=== PATIENT | female | born 1945 | race Caucasian/White ===

== ENCOUNTER 2021-10-27 12:31 | Outpatient (CLI) | payer MEDICARE, OTHER | END 2021-10-27 12:32 | disposition critical access hospital (66) | LOC: EMS 12:31 | DX: R11.2 Nausea with vomiting, unspecified (principal); R55 Syncope and collapse; R53.81 Other malaise | CPT/HCPCS: A0425; A0427 ==

== ENCOUNTER 2021-10-27 12:42 | Emergency (ER) | payer MEDICARE, OTHER ==
[2021-10-27 12:55] VITALS: BP 163/88
--- NOTE | 2021-10-27 12:58 | ED Physician Documentation ---
History of Present Illness - Stated complaint Stated Complaint: NAUSEA - Chief complaint Chief Complaint: General - Additonal information Additional information: 76-year-old female who has a history of hypertension presents the emergency depa rtment for evaluation of generalized diaphoresis and feeling like she was overheated while driving. She was in her vehicle and driving from [place] to [place]. She had been in her vehicle for about 1 hour with the air conditioning on when she began to feel suddenly overheating and began to sweat. She pushed through and [place]. Because she thought she may have been overheated she drank about 1.5-2 L of crystalloid prior to coming into the ER. She reports the duration of her symptoms lasted for about 45 minutes to 1 hour. [place] For EMS she had a nonischemic EKG. She was given some Zofran which improved the nausea. She denies that she was ever having any chest pain but did think she might have been somewhat short of breath. No history of myocardial infarction. No unilateral leg swelling. Non-smoker. No history of alcohol use. Review of Systems Constitutional: reports: Other (Diaphoresis). denies: Fever, Chills Eyes: reports: Reviewed and negative Nose: reports: Reviewed and negative Throat: reports: Reviewed and negative Cardiac: denies: Chest pain / pressure, Palpitations, Pedal edema, Calf pain Respiratory: denies: Dyspnea, Cough, Hemoptysis, Wheezing GI: reports: Nausea : reports: Reviewed and negative Skin: reports: Reviewed and negative Musculoskeletal: reports: Reviewed and negative PD PAST MEDICAL HISTORY - Allergies Allergies/Adverse Reactions: Allergies Allergy/AdvReac Type Severity Reaction Status Date / Time losartan Allergy Edema Verified 10/27/21 12:49 meperidine [From Demerol] Allergy Emesis Verified 10/27/21 12:49 PD ED PE NORMAL - General General: Alert and oriented X 3, No acute distress, Well developed/nourished - HEENT HEENT: Atraumatic, Moist mucous membranes, Pharynx benign - Neck Neck: Supple, no meningeal sign, No adenopathy - Cardiac Cardiac: RRR, No murmur - Respiratory Respiratory: No respiratory distress - Abdomen Abdomen: Normal bowel sounds, Soft, Non tender - Back Back: No CVA TTP, No spinal TTP - Derm Derm: Normal color, Warm and dry, No rash - Extremities Extremities: No deformity - Neuro Neuro: Alert and oriented X 3, 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 Eye Opening: Spontaneous Motor: Obeys Commands Verbal: Oriented GCS Score: 15 - Psych Psych: Normal mood Results - Vitals Vitals: Vital Signs - 24 hr 10/27/21 10/27/21 12:49 12:55 Temperature 36.5 C 36.5 C Heart Rate 66 66 Respiratory 16 16 Rate Blood Pressure 163/88 H 163/88 H O2 Saturation 99 99 Oxygen O2 Source Room air - EKG (time done) 1250 Rate: Rate (enter#) (70) Rhythm: NSR, Other (multiple PVC's) [place]: Normal Intervals: Normal [place] QRS: Normal Ischemia: Non specific changes (t wave flattening inferior leads) Compare to prior EKG: Old EKG unavailable Computer interpretation: Agree with computer - Labs Labs: Laboratory Tests 10/27/21 10/27/21 10/27/21 13:05 13:05 13:05 WBC 5.4 RBC 4.16 L Hgb 13.5 Hct 38.5 MCV 92.5 MCH 32.5 H MCHC 35.1 RDW 13.0 Plt Count 208 MPV 10.2 Neut # (Auto) 4.3 Lymph # (Auto) 0.5 L Winn # (Auto) 0.5 Eos # (Auto) 0.0 Baso # (Auto) 0.0 Absolute Nucleated RBC 0.00 Nucleated RBC % 0.0 Sodium 129 L Potassium 3.5 Chloride 96 L Carbon Dioxide 22 Anion Gap 11.0 BUN 20 Creatinine 0.6 Estimated GFR (MDRD) 97 Glucose 115 H Calcium 8.7 Total Bilirubin 0.5 AST 29 ALT 26 Alkaline Phosphatase 54 Troponin I High Sens 4.0 Total Protein 6.6 L Albumin 4.0 Globulin 2.6 Albumin/Globulin Ratio 1.5 Lipase 25 TSH 10/27/21 13:05 WBC RBC Hgb Hct MCV MCH MCHC RDW Plt Count MPV Neut # (Auto) Lymph # (Auto) Winn # (Auto) Eos # (Auto) Baso # (Auto) Absolute Nucleated RBC Nucleated RBC % Sodium Potassium Chloride Carbon Dioxide Anion Gap BUN Creatinine Estimated GFR (MDRD) Glucose Calcium Total Bilirubin AST ALT Alkaline Phosphatase Troponin I High Sens Total Protein Albumin Globulin Albumin/Globulin Ratio Lipase TSH 2.78 - Rads (name of study) cxr Radiology: Final report received (No acute cardiopulmonary process) PD MEDICAL DECISION MAKING - ED course Complexity details: reviewed results, re-evaluated patient, considered differential, d/w patient ED course: 76-year-old female presents emergency department for evaluation what she thought was heat exertion and near syncope while driving. She had been on the road about 30 to 45 minutes after loading her car with a bunch of suitcases and baggage as she is visiting the [place] for a few days. Her screening EKG was nonischemic. Troponin was negative. Because patient thought she might have some heat prostration she drank nearly 2 L of water prior to arrival to the emergency department. We do note screening labs here show a mild hyponatremia of 129. She has normal mentation. I discussed with her that the near syncope is something that needs close follow-up with her primary care provider. And she should have her labs reevaluated in about 72 hours time to ensure that the hyponatremia is not worsening. While here in the emergency department she has remained symptom-free. There has been no chest pain or shortness of air. She is ambulated without any acute concerns. She understands the discharge plan as well as emergent return precautions Departure - Departure Disposition: 01 Home, Self Care Clinical Impression: Hyponatremia, Near syncope Condition: Stable Record reviewed to determine appropriate education?: Yes Instructions: ED Near Syncope Unkn Comments: Kendra marcus are seen today in the emergency department because you began to feel like you were going to may be faint while driving. You also thought that maybe you had some heat exertion. You drink a lot of water prior to coming into the emergency department. Today your screening EKG does not show any signs that you are having a heart attack. Your troponin is negative. But given your history of high blood pressure as well as your age your primary care doctor should refer you for outpatient stress testing and echocardiogram. Today your screening labs do show a mild hyponatremia or low sodium level. It is 129. Normal value is 135. I suspect that is acutely low today because of the amount of water you drink. I would like you to discuss this with your primary care doctor and have your labs rechecked on Tuesday to ensure that the hyponatremia is not worsening. It is important that you do not over consume water in large quantities as a very low sodium level can cause strokelike symptoms. In general you should drink about 1-1/2 to 2 L of water daily.
[2021-10-27] MEDS ORDERED: SODIUM CHLORIDE 0.9% 1,000 ML IV STA (12:59)
[2021-10-27 13:14] LABS: BASOPHILS % (AUTO) 0.4 %; EOSINOPHILS % (AUTO) 0.4 %; HCT - HEMATOCRIT 38.5 % (37.0-47.0); HGB - HEMOGLOBIN 13.5 g/dL (12.0-16.0); LYMPHOCYTES # (AUTO) 0.5 10^3/uL (1.5-3.5); MEAN CORPUSCULAR HEMOGLOBIN 32.5 pg (27.0-31.0); MEAN CORPUSCULAR HGB CONC 35.1 g/dL (32.0-36.0); MEAN CORPUSCULAR VOLUME 92.5 fL (81.0-99.0); MEAN PLATELET VOLUME 10.2 fL (7.9-10.8); MONOCYTES # (AUTO) 0.5 10^3/uL (0.0-1.0); MONOCYTES % (AUTO) 9.3 %; NEUTROPHILS # (AUTO) 4.3 10^3/uL (1.5-6.6); NEUTROPHILS % (AUTO) 80.7 %; PLT - PLATELET COUNT 208 10^3/uL (130-450); RED BLOOD COUNT 4.16 10^6/uL (4.20-5.40); WHITE BLOOD COUNT 5.4 x10^3/uL (4.8-10.8)
--- NOTE | 2021-10-27 13:21 | XRAY Report ---
PROCEDURE: Chest 1 View X-Ray INDICATIONS: Chest Pain TECHNIQUE: One view of the chest was acquired. COMPARISON: None FINDINGS: Surgical changes and devices: None. Lungs and pleura: No pleural effusions or pneumothorax. Lungs are clear. Mediastinum: Mediastinal contours appear normal. Heart size is normal. Bones and chest wall: No suspicious bony lesions. Overlying soft tissues appear unremarkable. IMPRESSION: Chest without acute cardiopulmonary abnormalities. No focal airspace disease. Reviewed by: Theodore King MD on 10/27/2021 1:20 PM PDT Approved by: Theodore King MD on 10/27/2021 1:20 PM PDT Station ID: [id number]
[2021-10-27 13:32] LABS: ALBUMIN/GLOBULIN RATIO 1.5 (1.0-2.2); BILIRUBIN,TOTAL 0.5 mg/dL (0.2-1.0); CALCIUM 8.7 mg/dL (8.5-10.3); CREATININE 0.6 mg/dL (0.4-1.0); POTASSIUM 3.5 mmol/L (3.5-5.0); TOTAL PROTEIN 6.6 g/dL (6.7-8.2)
== END 2021-10-27 14:26 | disposition home or self-care (01) ==
LOC: ED 12:42
DX: E87.1 Hypo-osmolality and hyponatremia (principal); R55 Syncope and collapse
CPT/HCPCS: 36415; 80053; 83690; 84443; 84484; 85025; 93005; 96360; 99284